=== PATIENT | female | born 1985 | race Caucasian/White ===

== ENCOUNTER 2020-08-13 05:18 | Inpatient (IN) ==
[2020-08-13 06:49] LABS: ABS Eosinophils 0.1 10^3/ul (0-0.6); ABS Lymphocytes 0.5 10^3/ul (1.0-4.8); ABS Monocytes 0.4 10^3/ul (0-0.8); ABS Neutrophils 3.9 10^3/ul (1.5-7.7); Eosinophil % 1.1 %; Hematocrit 40 % (35-47); Hemoglobin 13.6 g/dL (12.0-16.0); Lymphocyte % 10.3 %; Mean Corpuscular HGB Conc 34 g/dL (31-36); Mean Corpuscular Hemoglobin 31 pg (27-31); Mean Corpuscular Volume 90 fL (80-97); Mean Platelet Volume 8.7 fL (7.4-10.4); Nucleated Red Blood Cells % 0.1; Platelet Count 152 10^3/uL (150-450); Red Cell Distribution Width 13 % (10-15); White Blood Count 4.8 10^3/uL (3.5-10.8)
[2020-08-13 07:07] LABS: ALT 64 U/L (7-52); AST 63 U/L (13-39); Albumin 3.9 g/dL (3.2-5.2); Albumin/Globulin Ratio 1.1 (1-3); Alkaline Phosphatase 97 U/L (35-149); Anion Gap 8 mmol/L (2-11); Blood Urea Nitrogen 8 mg/dL (6-24); C Reactive Protein 93.53 mg/L (<8.01); CO2 Carbon Dioxide 23 mmol/L (22-32); Calcium 8.8 mg/dL (8.6-10.3); Chloride 102 mmol/L (101-111); EGFR Non-African American 66.1 (>60); Globulin 3.4 g/dL (2-4); Glucose 116 mg/dL (70-100); Magnesium 1.8 mg/dL (1.9-2.7); Potassium 3.7 mmol/L (3.5-5.0); Sodium 133 mmol/L (135-145); Total Protein 7.3 g/dL (6.4-8.9)
[2020-08-13] MEDS: Lactated Ringers 1000 ml BAG 1,000 ML IV SCH ×2 (07:08→08:37)
[2020-08-13 09:19] LABS: Urine Appearance Clear; Urine Bilirubin Negative (Negative); Urine Blood 1+ (Negative); Urine Color Yellow; Urine Glucose Negative (Negative); Urine Ketones Trace (Negative); Urine Nitrite Negative (Negative); Urine Protein Negative (Negative); Urine Urobilinogen Negative (Negative)
[2020-08-13 09:48] LABS: Urine Bacteria 1+ (Absent); Urine Red Blood Cell Trace(0-2/hpf) (Absent); Urine Squamous Epithelial Cell Present (Absent); Urine White Blood Cell Trace(0-5/hpf) (Absent)
[2020-08-13] MEDS ORDERED: Magnesium Sulfate IV 1GM/100ML 1 GM/100 ML BAG IV ONE (10:19)
[2020-08-13] MEDS ORDERED: Metoclopramide 5 MG/ML VIAL (10 mg) IV SLOW PU ONE (10:19)
[2020-08-13] MEDS ORDERED: diPHENhydraMINE IV 50 MG/ML 1 ml VIAL (BENADRYL) SLOW PUSH ONE (10:19)
[2020-08-13] MEDS ORDERED: Lactated Ringers 1000 ml BAG 1,000 ML IV ONE ×2 (10:19→13:36)
[2020-08-13] MEDS ORDERED: cefTRIAXone 2 GM ADDV.VIAL 2 GM in NS 0.9% 100 ml BAG 100 ML IVPB ONE (10:20)
[2020-08-13 12:37] LABS: Body Fluid Source Cerebral Spinal
[2020-08-13 13:13] LABS: CSF Glucose 64 mg/dL (40-70)
[2020-08-13] MEDS ORDERED: fentaNYL 100 mcg/2 ml 50 MCG/ML VIAL IV SLOW PU ONE (13:36)
[2020-08-13 14:03] LABS: Body Fluid Mono 33 %
[2020-08-13] MEDS ORDERED: Vancomycin 1,500 MG in NS 0.9% 250 ml 250 ML IVPB ONE (15:38)
[2020-08-13] MEDS ORDERED: Morphine 4 MG/ML VIAL (1 ml) IV ONE (15:47)
[2020-08-13] MEDS ORDERED: Acyclovir IV 500 MG/10 ML 100 ML VIAL (500 MG) IVPB SCH (16:00)
[2020-08-13 17:22] LABS: HCG Pregnancy < 0.60 mIU/mL
[2020-08-13 17:35] LABS: Creatine Kinase 25 U/L (10-223)
[2020-08-13] MEDS: DOXYcycline 100 MG in NS 0.9% 250 ml 250 ML IVPB SCH (21:30)
[2020-08-13 22:55] LABS: HIV 4th Generation Nonreactive (Nonreactive)
[2020-08-14 06:58] LABS: ABS Eosinophils 0.1 10^3/ul (0-0.6); ABS Lymphocytes 0.8 10^3/ul (1.0-4.8); ABS Monocytes 0.3 10^3/ul (0-0.8); ABS Neutrophils 3.3 10^3/ul (1.5-7.7); Eosinophil % 2.6 %; Hematocrit 34 % (35-47); Hemoglobin 11.8 g/dL (12.0-16.0); Lymphocyte % 16.9 %; Mean Corpuscular HGB Conc 35 g/dL (31-36); Mean Corpuscular Hemoglobin 31 pg (27-31); Mean Corpuscular Volume 90 fL (80-97); Mean Platelet Volume 8.9 fL (7.4-10.4); Nucleated Red Blood Cells % 0.2; Platelet Count 149 10^3/uL (150-450); Red Blood Count 3.76 10^6 /uL (3.70-4.87); Red Cell Distribution Width 13 % (10-15); White Blood Count 4.5 10^3/uL (3.5-10.8)
[2020-08-14 07:16] LABS: Calcium 8.4 mg/dL (8.6-10.3); EGFR African American 108.1 (>60); EGFR Non-African American 89.3 (>60); Potassium 3.8 mmol/L (3.5-5.0); Total Bilirubin 0.3 mg/dL (0.2-1.0)
[2020-08-14] MEDS: DOXYcycline 100 MG in NS 0.9% 250 ml 250 ML IVPB SCH (07:52)
[2020-08-14 11:31] VITALS: BP 104/64
[2020-08-14 14:50] LABS: EBV Capsid Ag IgG Ab Positive (Negative); EBV Capsid Ag IgM Ab Negative (Negative); Epstein-Barr Nuclear Antigen Positive (Negative)
[2020-08-14 15:41] LABS: RPR Nonreactive (Nonreactive)
[2020-08-15 04:07] LABS: Anaplasma phagocytophilum Negative (Negative); B. miyamotoi PCR, B Negative (Negative); Babesia divergens/MO-1 Negative (Negative); Babesia ducani Negative (Negative); Ehrlichia chaffeensis Negative (Negative); Ehrlichia ewingii/canis Negative (Negative); Ehrlichia muris eauclairensis Negative (Negative)
[2020-08-15 11:18] LABS: HSV 1 PCR, CSF Negative (Negative); HSV 2 PCR, CSF Negative (Negative)
[2020-08-16 17:33] LABS: B. garinii/B. afzellii PCR Negative (Negative); Lyme Disease Source CSF
[2020-08-17 15:13] LABS: CSF VDRL Negative (Negative)
[2020-08-17 16:38] LABS: T.Pallidum TP-PA Negative (Negative)
[2020-08-17 21:09] LABS: IgG Immunoblot Negative (Negative); IgM Immunoblot Positive (Negative)
== END 2020-08-14 14:40 | disposition home or self-care (01) | DRG 724 ==
LOC: ED 05:18 → MED 19:34
PROVIDERS: ADMIT Internal Medicine; ATTEND Internal Medicine